=== PATIENT | male | born 1990 | race Caucasian/White ===

== ENCOUNTER 2021-01-15 23:31 | Emergency (ER) | payer SELFPAY ==
[~2021-01-15] VITALS: Ht 177.8 cm; Wt 84.0 kg
[2021-01-15 23:33] VITALS: BP 129/73
--- NOTE | 2021-01-15 23:36 | NUR ---
pilot submersible: EKG done in triage
--- NOTE | 2021-01-15 23:48 | NUR ---
PER PT HE DOESN'T SHOOT UP HEROIN, HE JUST SNIFFS IT. PT SAYS HE LEFT [place] TO GET OUT OF THERE AND NOT DO ANY MORE HEROIN. WHEN ASKED WHEN THE LAST TIME PT DID HEROIN, HE SAID IT WAS YESTERDAY. PT THINKS HE TOOK TO MANY METHADONE TABLETS. BUT HE'S UNSURE. PT SAYS HE BOUGHT THE TWO TABLETS OF METHADONE BY SOMEONE ON THE STREETS. AND HE TOOK 4/5THS OF A 112MG SEBOXIN TAB, AND ALSO BOUGHT AN OVAL PILL AND HE ATE 1/2 OF THAT PILL. PT STATES HE'S PANICKY, WANTS TO MAKE SURE HE DIDN'T OVERDOSE. PT PLACED ON CR MONITOR, AND BLANKETS PROVIDED. MD MILE FLORES.
[2021-01-16] MEDS ORDERED: ONDANSETRON ODT 4 MG PO ONE
[2021-01-16] MEDS ORDERED: ONDANSETRON ODT 4 MG ONE (00:09)
--- NOTE | 2021-01-16 00:11 | NUR ---
TO EVAL PT, AND ORDERS RECEIVED, AND ZOFRAN GIVEN TO PT. AND HE TOLERATED WELL, PT HAVING SOME WITHDRAWAL PAINS, BUT O2 SATS 100%.
[2021-01-16 00:34] LABS: BASOPHILS % (AUTO) 1 % (0-1); EOSINOPHILS % (AUTO) 1 % (1-7); LYMPHOCYTES % (AUTO) 14 % (22-44); MEAN CORPUSCULAR HEMOGLOBIN 31.1 pg (27.5-34.5); MEAN CORPUSCULAR HGB CONC 34.8 g/dL (33.2-36.2); MEAN PLATELET VOLUME 6.7 fL (7.4-10.4); MONOCYTES % (AUTO) 4 % (2-9); NEUTROPHILS % (AUTO) 81 % (42-75); PLATELET COUNT 299 x10^3/uL (130-400); RED BLOOD COUNT 4.19 x10^6/uL (4.38-5.82); RED CELL DISTRIBUTION WIDTH 13.3 % (9.4-14.8)
[2021-01-16 00:43] LABS: ALANINE AMINOTRANSFERASE 18 U/L (12-78); ANION GAP 8 mmol/L (5-15); CALCIUM 8.8 mg/dL (8.5-10.1); CHLORIDE 102 mmol/L (98-107)
[2021-01-16 00:45] LABS: ALKALINE PHOSPHATASE 71 U/L (45-117); BILIRUBIN,TOTAL 1.7 mg/dL (0.2-1.0); TOTAL PROTEIN 7.5 g/dL (6.4-8.2)
[2021-01-16] MEDS ORDERED: GABAPENTIN 300 MG CAPSULE PO ONE (01:00)
[2021-01-16] MEDS ORDERED: GABAPENTIN 300 MG CAPSULE ONE (01:05)
--- NOTE | 2021-01-16 01:17 | NUR ---
PT CALM AND RESTING IN [facility] IN NO APPARENT DISTRESS WHEN RN WENT IN TO MEDICATE PT. PT TOLERATED MEDICATIONS WELL.
--- NOTE | 2021-01-16 02:58 | NUR ---
PT ASLEEP WHEN RN TO BEDSIDE TO PROVIDE D/C INSTRUCTIONS. PT AWAKE AND ALERT X4, AMBULATORY AND UNDERSTANDS. PT GIVEN F/U AND D/C INSTRUCTIONS AND PRESCRIPTIONS AND ALSO RESOURCES AND PHONE NUMBERS TO THE [facility]. PT V/U.
== END 2021-01-16 03:04 | disposition home or self-care (01) ==
LOC: ED 01-16 02:08
DX: F11.23 Opioid dependence with withdrawal (principal); R11.2 Nausea with vomiting, unspecified; F17.210 Nicotine dependence, cigarettes, uncomplicated; R94.31 Abnormal electrocardiogram [ECG] [EKG]
CPT/HCPCS: 36415; 80053; 83690; 85025; 93005; 99284; 99406; Q0162